=== PATIENT | female | born 1995 ===

== ENCOUNTER 2020-11-06 13:13 | Emergency (ER) | payer OTHER ==
[~2020-11-06] VITALS: Ht 154.9 cm; Wt 44.5 kg
== END 2020-11-06 16:27 | disposition home or self-care (01) ==
LOC: ER 13:13
DX: R21 Rash and other nonspecific skin eruption (principal); T78.49XA Other allergy, initial encounter

== ENCOUNTER 2022-01-13 16:33 | Emergency (ER) | payer OTHER ==
[~2022-01-13] VITALS: Ht 154.9 cm; Wt 42.2 kg
[2022-01-13] MEDS ORDERED: HYDROXYZINE PAM25 MG (17:36)
[2022-01-13] MEDS ORDERED: [UNRECOGNIZED DRUG - OTHER] (17:37)
== END 2022-01-13 18:53 | disposition home or self-care (01) ==
LOC: ER 16:33
DX: B34.9 Viral infection, unspecified (principal); Z20.822 Contact with and (suspected) exposure to COVID-19

== ENCOUNTER → 2023-01-10 | Outpatient (CLI) | payer OTHER ==
[~2023-01-10] MED LIST: HYDROXYZINE PAM25 MG; [UNRECOGNIZED DRUG - OTHER]
== END | disposition home or self-care (01) ==
LOC: SONOGRAMA 11:48
PROVIDERS: ATTEND Obstetrics & Gynecology
DX: N63.21 Unspecified lump in the left breast, upper outer quadrant (principal); N63.12 Unspecified lump in the right breast, upper inner quadrant